=== PATIENT | male | born 1960 | race Two or more races ===

== ENCOUNTER 2018-12-05 05:41 | Day surgery (SDC) | payer OTHER ==
[2018-12-05] VITALS (8 sets, daily range): BP systolic 116–150; BP diastolic 63–88
[~2018-12-05] VITALS: Ht 177.8 cm; Wt 104.3 kg
[2018-12-05] MEDS ORDERED: celeBREX 200mg Cap **SURGERY PATIENTS ONLY ORAL ONE (06:00)
[2018-12-05] MEDS ORDERED: ceFAZolin 1gm IVPB IVPB ONE ×2 (06:00)
[2018-12-05] MEDS ORDERED: oxyCONTIN 20mg tab ORAL ONE (06:00)
[2018-12-05] MEDS ORDERED: FLOMAX0.4 MG ORAL (06:26)
[2018-12-05] MEDS ORDERED: Morphine Sulfate PF 10 ML ONE (07:12)
[2018-12-05] MEDS ORDERED: EPINEPHrine 1mg/1ml Amp ONE (07:12)
[2018-12-05] MEDS ORDERED: Kenalog-40 1ml Vial ONE (07:13)
[2018-12-05] MEDS ORDERED: Ketorolac 30mg Inj ONE (07:13)
[2018-12-05] MEDS ORDERED: Lidocaine 1% 10mg/ml/Epi 0.005mg/ml 30ml vial INJ ONE (07:13)
[2018-12-05] MEDS ORDERED: Bupivacaine 0.25% Inj 30ml INJ ONE (07:13)
[2018-12-05] MEDS ORDERED: Midazolam 2mg/2ml Inj ONE (07:14)
[2018-12-05] MEDS ORDERED: Lidocaine 1% MPF 10mg/ml 5ml ONE (07:14)
[2018-12-05] MEDS ORDERED: Sodium Chloride 10ml vial INJ ONE (07:14)
[2018-12-05] MEDS ORDERED: Dexamethasone 4mg/ml vial ONE (07:14)
[2018-12-05] MEDS ORDERED: LR 1000ml 1,000 ML IVLG SCH (07:22)
--- NOTE | 2018-12-05 07:25 | Anethesia Preoperative Eval ---
Anesthesia Pre-op PMH/ROS General Date of Evaluation: Dec 05, 2018 Time of Evaluation: 07:21 Anesthesiologist: Stuart ASA Score: ASA 2 Mallampati Score Class I : Soft palate, uvula, fauces, pillars visible Class II: Soft palate, uvula, fauces visible Class III: Soft palate, base of uvula visible Class IV: Only hard plate visible Mallampati Classification: Class II Surgeon: Thiago Diagnosis: R Knee Pain Surgical Procedure: R Knee Arthroscopy Anesthesia History: none Family History: no anesthesia problems Allergies: Coded Allergies: No Known Allergies (Unverified , 12/05/18) Medications: see eMAR Patient NPO?: Yes Past Medical History Cardiovascular: Reports: HTN Gastrointestinal/Genitourinary: Reports: other - BPH Other: obesity Anesthesia Pre-op Phys. Exam Physician Exam Last Vital Signs Date Time Temp Pulse Resp B/P (MAP) Pulse Ox O2 Delivery O2 Flow Rate FiO2 12/05/18 06:26 Room Air 12/05/18 06:20 98.3 73 18 119/63 97 Constitutional: NAD Neurologic: CN 2-12 intact Cardiovascular: RRR Respiratory: CTA Gastrointestinal: S/NT/ND Airway Exam Mallampati Score: Class II MO: full ROM: full Teeth: intact Anesthesia Pre-op A/P Risk Assessment & Plan Assessment: ASA 2 Plan: GA, SED Status Change Before Surgery: No Pre-Antibiotics Dru Gram Ancef IV Given Within 1 Hr of Incision: Yes Time Given: 07:46 Pio Davidson MD Dec 05, 2018 07:25
[2018-12-05] MEDS ORDERED: Hydromorphone 0.5mg/0.5ml inj IVP PRN (07:30)
[2018-12-05] MEDS ORDERED: Metoclopramide 10mg/2ml Inj IVP PRN (07:30)
[2018-12-05] MEDS ORDERED: HYDROcodone/Acetamin 5/325 tab ORAL PRN ×2 (07:30→15:31)
[2018-12-05] MEDS ORDERED: HYDROcodone/Acetamin 7.5/325 tab ORAL PRN (07:30)
[2018-12-05] MEDS ORDERED: Midazolam 2mg/2ml Inj IVP PRN (07:30)
[2018-12-05] MEDS ORDERED: Propofol 200mg/20ml IV ONE (07:30)
[2018-12-05] MEDS ORDERED: fentaNYL 100 mcg/2 mL IV PRN (07:30)
[2018-12-05] MEDS ORDERED: LORazepam Inj 2mg/ml 1ml IV PRN (07:30)
[2018-12-05] MEDS ORDERED: oxyCODONE HCL/Acetaminophen 5/325mg ORAL PRN (07:30)
[2018-12-05] MEDS ORDERED: Atropine Sulfate 0.4mg/ml inj IVP PRN (07:30)
[2018-12-05] MEDS ORDERED: LR 1000ml ONE (07:30)
[2018-12-05] MEDS ORDERED: Ketorolac 30mg Inj IV PRN ×2 (07:30)
[2018-12-05] MEDS ORDERED: Acetaminophen (Non formulary) 100 ML IV ONE (07:30)
[2018-12-05] MEDS ORDERED: Sterile Water Irrig 1000ml IRRIG ONE (07:30)
[2018-12-05] MEDS ORDERED: DiphenhydrAMINE 50mg/ml Inj IVP PRN (07:30)
[2018-12-05] MEDS ORDERED: Meperidine 50mg/ml Inj(FOR RIGORS ONLY) IVP PRN (07:30)
--- NOTE | 2018-12-05 07:34 | Operative Note - PDOC ---
Operative Note Operative Note Pre-op Diagnosis: right knee medial meniscus tear Procedure: see op report Post-op Diagnosis: same as pre-op plus Operative Findings: consistent w/pre-op dx studies Anesthesia: regional, MAC Specimen: none Complications: none Condition: stable Estimated Blood Loss: none Implant(s) used?: No Jai Das MD Dec 05, 2018 07:34
--- NOTE | 2018-12-05 07:34 | Pre-Procedure Note/Attestation ---
Pre-Procedure Note/Attestation Complete Prior to Procedure Planned Procedure: right Procedure Narrative: knee arthroscopy, medial menisectomy Indications for Procedure Pre-Operative Diagnosis: right knee medial meniscus tear Attestation I attest that I discussed the nature of the procedure; its benefits; risks and complications; and alternatives (and the risks and benefits of such alternatives ), prior to the procedure, with the patient (or the patient's legal digital media representative). I attest that, if there was a reasonable possibility of needing a blood transfusion, the patient (or the patient's legal digital media representative) was given the [facility] standardized written summary, pursuant to the Ramez Harsha Blood Safety Act ([place] Health and Safety Code # 1645, as amended). I attest that I re-evaluated the patient just prior to the surgery and that there has been no change in the patient's H&P, except as documented below: Jai Das MD Dec 05, 2018 07:34
[2018-12-05] MEDS ORDERED: Phenylephrine 10mg/ml Vial ONE (07:53)
--- NOTE | 2018-12-05 08:03 | Immediate Post-Op Evaluation ---
Immediate Post-Op Evalulation Immediate Post-Op Evalulation Procedure: R Knee Arthroscopy Date of Evaluation: Dec 05, 2018 IV Fluids: 600 Blood Products: 0 Estimated Blood Loss: 2 Urinary Output: 0 Blood Pressure Systolic: 150 Blood Pressure Diastolic: 86 Pulse Rate: 84 Respiratory Rate: 16 O2 Sat by Pulse Oximetry: 96 Temperature (Fahrenheit): 98 Pain Score (1-10): 2 Nausea: No Vomiting: No Complications 0 Patient Status: awake, reacts, patent, extubated, none Hydration Status: adequate Dru Gram Ancef IV Given Within 1 Hr of Incision: Yes Time Given: 07:46 Pio Davidson MD Dec 05, 2018 08:03
--- NOTE | 2018-12-05 08:04 | 48 Hour Post Anesthesia Eval ---
Post Anesthesia Evaluation Procedure: R Knee Arthroscopy Date of Evaluation: Dec 05, 2018 Time of Evaluation: 11:58 Blood Pressure Systolic: 143 0: 82 Pulse Rate: 78 Respiratory Rate: 18 Temperature (Fahrenheit): 98.2 O2 Sat by Pulse Oximetry: 96 Airway: patent Nausea: No Vomiting: No Pain Intensity: 2 Hydration Status: adequate Cardiopulmonary Status: Stable Mental Status/LOC: patient returned to baseline Follow-up Care/Observations: 0 Post-Anesthesia Complications: 0 Follow-up care needed: ready to discharge Pio Davidson MD Dec 05, 2018 08:04
[2018-12-05] MEDS ORDERED: NS Irrig 4000ml IRRIG ONE ×2 (08:09→08:19)
[2018-12-05] MEDS ORDERED: D5 1/2NS 1,000 ML IV SCH (15:31)
[2018-12-05] MEDS ORDERED: Hydromorphone 0.5mg/0.5ml inj SUBQ PRN (15:31)
[2018-12-05] MEDS ORDERED: Tylenol #3 tab (300mg/30mg) ORAL PRN (15:31)
--- NOTE | 2018-12-05 16:46 | Operative Note - Dictated ---
DATE OF OPERATION: 12/05/2018 PREOPERATIVE DIAGNOSIS: Right knee internal derangement and meniscal tear. POSTOPERATIVE DIAGNOSES: 1. Right knee medial meniscus tear. 2. Hypertrophic fat pad tissue medial, lateral, patellofemoral compartment. PROCEDURE: 1. Right knee arthroscopic partial medial meniscectomy. 2. Synovectomy of lateral patellofemoral compartment. SURGEON: Jai Das M.D. ANESTHESIA: General. INDICATION FOR PROCEDURE: The patient is a pleasant gentleman, who has had progressive right knee pain. The MRI showed a meniscal tear. He has failed conservative treatment, elected to undergo right knee diagnostic arthroscopy. Risks, limitations, expectations, and complications of the procedure were discussed in detail. All questions addressed. DESCRIPTION OF PROCEDURE: After informed consent was obtained, the patient was brought to the operating room. The patient was placed under general anesthesia. The right leg was prepped and draped in a sterile manner. Inferolateral stab incision was then made. Trocar was introduced into the knee joint. Systematic tour of the knee was performed. There was hypertrophic fat pad in the retropatellar space area making visualization difficult. Medial gutter was entered, free of any loose bodies. Medial compartment was entered. There was a tear of the posterior horn medial meniscus in the middle body and partial meniscectomy using combination of biters and roma was performed. ACL was probed to be intact. Lateral compartment was entered, free of any chondral meniscal pathology. The camera was repositioned in patellofemoral compartment in fixation and synovectomy was completed in the patellofemoral compartment. Once that was done, the patellofemoral compartment was noted to be intact. No chondral damage. At this point, the instruments were removed. Portal sites were closed with 3-0 Monocryl sutures. Steri-Strips and a sterile dressing were applied. The patient was awoken and taken to recovery room with stable vital signs. ESTIMATED BLOOD LOSS: None. COMPLICATIONS: None. SPECIMENS: None. IMPLANTS: None. Jai Das M.D. DR: SHARAD JOB#: [id number] CC: REYES
== END 2018-12-05 10:50 | disposition home or self-care (01) ==
LOC: SUR 05:41
DX: S83.241A Other tear of medial meniscus, current injury, right knee, initial encounter (principal); M79.4 Hypertrophy of (infrapatellar) fat pad; X58.XXXA Exposure to other specified factors, initial encounter; Y92.9 Unspecified place or not applicable; I10 Essential (primary) hypertension; E66.9 Obesity, unspecified; Z68.33 Body mass index [BMI] 33.0-33.9, adult
CPT/HCPCS: 29875; J0171; J0690; J1100; J1885; J2250; J2274; J2370; J2405; J2704; J3301; J3490; 94003; 94150